=== PATIENT | male | born 1940 | race Caucasian/White ===

== ENCOUNTER → 2021-09-15 | Outpatient (CLI) | payer MEDICARE, BC ==
[~2021-09-15] MED LIST: ASPIR 8181 MG PO; CLOPIDOGREL75 MG PO; COLACE 100MG C100 MG PO; CRESTOR 10 MG T10 MG PO; DILTIAZEM ER240 MG PO; LAMOTRIGINE100 MG PO; LANTUS SOL100 UNIT/1 SQ; LISINOPRIL5 MG PO; METFORMIN ER G500 MG PO; NORVASC5 MG PO; PANTOPRAZOLE SO20 MG PO; TRAZODONE HCL100 MG PO; TRULICITY1.5 MG/0.5 SQ; VENLAFAXINE HCL75 MG PO
== END ==
LOC: EXRD 14:26
DX: R31.9 Hematuria, unspecified (principal); N20.0 Calculus of kidney
CPT/HCPCS: 74018

== ENCOUNTER → 2021-10-31 | Outpatient (CLI) | payer MEDICARE | LOC: EXRD 15:54 | DX: R31.29 Other microscopic hematuria (principal); N28.1 Cyst of kidney, acquired | CPT/HCPCS: 76775 ==

== ENCOUNTER → 2021-12-02 | Day surgery (SDC) | payer MEDICARE, BC ==
[~2021-12-02] MED LIST changes: +CYANOCOBAL1000 MCG/1 INJ; +DILTIAZEM ER360 MG PO; +DOCUSATE SODIU250 MG PO; +FLONASE 0.05% N16 GM; +HYDRALAZINE HCL25 MG PO; +IROSPAN 24/6 T1 EACH PO; +NITROGLYCERIN0.4 MG SL; +ONDANSETRON HCL4 MG PO; +POLYETHYLENE GL17 GM PO; +PROTONIX 40 MG40 M1 PO; +TRULICITY3 MG/0.5 M SQ; +VITAMIN D350 MCG PO
== END | disposition home or self-care (01) ==
LOC: OR 06:18
DX: K29.70 Gastritis, unspecified, without bleeding (principal); K22.10 Ulcer of esophagus without bleeding; I12.9 Hypertensive chronic kidney disease with stage 1 through stage 4 chronic kidney disease, or unspecified chronic kidney disease; E11.22 Type 2 diabetes mellitus with diabetic chronic kidney disease; N18.9 Chronic kidney disease, unspecified; I25.10 Atherosclerotic heart disease of native coronary artery without angina pectoris; K21.9 Gastro-esophageal reflux disease without esophagitis; F41.9 Anxiety disorder, unspecified; F32.A Depression, unspecified; E78.5 Hyperlipidemia, unspecified; E11.40 Type 2 diabetes mellitus with diabetic neuropathy, unspecified; Z87.891 Personal history of nicotine dependence; Z95.1 Presence of aortocoronary bypass graft; Z79.82 Long term (current) use of aspirin; Z79.4 Long term (current) use of insulin; Z79.899 Other long term (current) drug therapy; Z88.0 Allergy status to penicillin; Z88.5 Allergy status to narcotic agent; Z88.8 Allergy status to other drugs, medicaments and biological substances
CPT/HCPCS: 82962; J2704

== ENCOUNTER → 2021-12-27 | Outpatient (CLI) | payer MEDICARE, BC ==
[2021-12-27 10:31] LABS: HEMOGLOBIN 9.6 gm/dl (14.0-17.5); RED BLOOD COUNT 3.22 M/UL (4.20-5.50); WHITE BLOOD COUNT 6.1 K/UL (4.5-11.0)
== END ==
LOC: LAB 10:05
PROVIDERS: Internal Medicine Nephrology
DX: N18.4 Chronic kidney disease, stage 4 (severe) (principal)
CPT/HCPCS: 36415; 80069; 85025